=== PATIENT | male | born 1980 | race Caucasian/White ===

== ENCOUNTER 2021-06-18 18:20 | Outpatient (REF) | payer OTHER, SELFPAY ==
[2021-06-19 01:25] LABS: NG PCR NOT DETECTED (Not Detect.)
[2021-06-19 10:48] LABS: CT PCR NOT DETECTED (Not Detect.)
== END 2021-06-18 18:21 | disposition home or self-care (01) ==
LOC: HO.LNP 18:20
PROVIDERS: Visit Provider Hospitalist
DX: Z11.3 Encounter for screening for infections with a predominantly sexual mode of transmission (principal)
CPT/HCPCS: 87491; 87591

== ENCOUNTER 2023-02-23 11:17 | Emergency (ER) | payer OTHER, SELFPAY ==
[2023-02-23 11:25] VITALS: BP 152/84; PULSE 105; RESP 20; TEMP 36.4; O2SAT 96; BMI 39.5
--- NOTE | 2023-02-23 11:25 | ED.GENADULT ---
HPI - General Adult General Chief complaint: Extremity Injury, Lower Stated complaint: L knee pain Time Seen by Provider: 02/23/23 11:24 Source: patient Mode of arrival: other (used crutches) Limitations: no limitations History of Present Illness HPI narrative: Patient is a 42 year old assigned male at with a history of gout presenting to the emergency department today with left knee pain. Patient states that in 2019 he was told he had a left meniscus sprain, got an MRI, and never heard back from the orthopedic group. Patient states that over the last few days he has had increased pain in his left knee. Patient denies any dizziness, lightheadedness, abdominal pain, nausea, vomiting, fever, chills, blurry vision, double vision, loss of vision, chest pain, difficulty breathing, shortness of breath, back pain, night sweats, pain with urination, increased urinary frequency, increased urinary urgency, blood in his urine or stool, syncope or a near syncopal episode, recent trauma or falls, bowel incontinence, bladder incontinence, bowel retention, bladder retention, or any other complaints at this time. Onset (ago): day(s) Location: left and lower extremity Radiation: non-radiation Severity: mild Severity scale (1-10): 4 Quality: aching and dull Pain Consistency: constant Relieving factors: immobilization Exacerbating factors: movement Associated symptoms: denies other symptoms Treatments prior to arrival: none Related Data Previous Rx's Medication Instructions Recorded ibuprofen 800 mg tablet 800 mg PO Q8H 1 month #90 tabs 06/17/21 omeprazole 20 mg capsule,delayed 20 mg PO DAILY #30 caps 06/17/21 release metformin 500 mg tablet 500 mg PO BID #60 tabs 07/14/21 prednisone 10 mg tablet 10 mg PO DIRECTED 18 days #63 09/07/22 tabs prednisone 20 mg tablet 20 mg PO DAILY 7 days #7 tabs 02/23/23 Allergies Allergy/AdvReac Type Severity Reaction Status Date / Time No Known Allergies Allergy Unverified 09/07/22 10:58 Review of Systems Constitutional: Constitutional: Reports no additional constitutional complaints, Denies chills, Denies fever(s) and Denies night sweats Eyes: Eyes: Reports no additional eye complaints, Denies blurry vision, Denies change in vision, Denies diplopia, Denies eye discharge, Denies loss of vision and Denies eye pain ENT: Denies dizziness Cardiovascular: Cardiovascular: Reports no additional cardiovascular complaints, Denies chest pain, Denies lightheadedness, Denies Loss of Consciousness and Denies dyspnea Respiratory: Respiratory: Reports no additional respiratory complaints and Denies dyspnea Gastrointestinal: Gastrointestinal: Reports no additional gastrointestinal complaints, Denies abdominal pain, Denies melena, Denies hematochezia, Denies change in bowel habits and Denies change in stool character Genitourinary: Genitourinary: Reports no additional male genitourinary complaints, Denies hematuria, Denies oliguria, Denies difficulty urinating, Denies dysuria, Denies urinary frequency, Denies urinary hesitancy, Denies urinary incontinence and Denies urinary urgency Musculoskeletal: Musculoskeletal: Reports no additional musculoskeletal complaints, Denies numbness and Denies tingling Comments: left knee pain Neurologic: Denies dizziness, Denies loss of vision, Denies numbness and Denies tingling Psychiatric: Psychiatric: Reports no additional psychiatric complaints Endocrine: Endocrine: Reports no additional endocrine complaints Hematologic/Lymphatic: Hematologic/Lymphatic: Reports no additional hematologic/lymphatic complaints Allergic/Immunologic: Allergic/Immunologic: Reports no additional allergic/immunologic complaints PMFSH Past Medical History Attestation statement: The following information was validated with the patient. Source: old records reviewed and nursing notes reviewed Social History Social History Household Members: Family Housing: House Alcohol intake: current Alcohol intake frequency: holidays/special occasions only Patient Tobacco Use Status: Former Tobacco user Cigarettes Per Day: 40 Years Smoked: 20 Advance Directives: No Advance Directives Information Provided: No Physical Exam ED Vital Signs: Vital Signs - 24 hr 02/23/23 11:25 Temperature 97.6 F Pulse Rate 105 H Respiratory Rate 20 Blood Pressure 152/84 H Pulse Oximetry 96 Oxygen Delivery Method Room Air BMI result Body Mass Index 39.5 Const General: cooperative, no acute distress, alert and awake Nutritional Appearance: well nourished Orientation/consciousness: patient oriented x3 Limitations: no limitations HENMT Head: Yes normal to inspection and Yes atraumatic Ears: hearing grossly normal bilaterally and external ears normal General nose exam: Normal external nose present, no nasal discharge noted and no epistaxis Face and sinus: Yes normal facial exam, No abrasion and No laceration Mouth: Normal oral and palatal mucosa present, no drooling and no muffled voice Eyes General: appearance normal, both eyes and all related structures Periorbital: periorbital findings normal Eyelids: Yes eyelids normal Conjunctivae: conjunctivae normal Pupils: Equal, round and reactive pupils present EOM: EOMs intact bilaterally Neck Neck: Yes normal visual inspection, Yes full ROM and Yes no lymphadenopathy Chest Chest palpation & inspection: normal inspection of the chest Resp Effort & Inspection: normal respiratory effort and able to speak in complete sentences GI Inspection: Yes normal to inspection Neuro General: patient oriented x3 and moves all extremities Cranial nerves: Yes Equal, round and reactive pupils present Cognition (Neuro): normal cognition Motor exam (neuro): 5/5 motor strength present throughout Sensory Exam: Normal double simultaneous stimulation for sensation Coordination: [id number] test normal Extrem General: Yes normal to inspection, Yes full ROM and Yes capillary refill normal Psych Appearance: grossly normal Mental Status: mental status grossly normal Affect: normal affect Attitude: cooperative Thought process: Normal thought process present Thought content: Normal thought content present Insight: Good insight present (Psych) Procedures Orthopedic Splinting/Casting Injury #1: Side: left Lower Extremity Injury Location: knee Lower Extremity Immobilizer: knee immobilizer Medical Decision Making Medical Decision Making MDM Narrative: Patient is a 42 year old assigned male at with a history of GERD and gout presenting to the emergency department today with left knee pain. Patient's physical exam was unremarkable. I explained my physical exam findings to the patient. I answered all questions asked by the patient. Patient's left knee was placed in an immobilizer, without incident. Patient's PMS was intact prior to and after immobilizer placement. I stressed the importance of the patient taking his medication as prescribed. I stressed the importance of the patient following up with his primary care provider and an orthopedic provider. I stressed the importance of the patient returning to the emergency department immediately if his symptoms were to worsen or if he were to develop any dizziness, shortness of breath, difficulty breathing, chest pain, blurry vision, loss of vision, nausea, vomiting, abdominal pain, fever, chills, back pain, or any other complaints. Patient verbalized agreement and understanding with this treatment plan and discharge. Differential Diagnosis Differential Diagnoses: The differential diagnosis associated with the presentation includes Left knee pain Left knee strain Meniscus injury Discharge Plan Discharge Clinical Impression: Meniscal injury, Knee sprain Patient Disposition: Home, Self-Care Instructions: Knee Sprain (DC) Additional Instructions: Follow up with your primary care provider and an orthopedic provider. Return to the emergency department immediately if your symptoms worsen or if you develop any dizziness, shortness of breath, difficulty breathing, chest pain, blurry vision, loss of vision, nausea, vomiting, abdominal pain, fever, chills, back pain, or any other complaints. Prescriptions: New prednisone 20 mg tablet 20 mg PO DAILY 7 Days Qty: 7 0RF No Action metformin 500 mg tablet 500 mg PO BID Qty: 60 8RF ibuprofen 800 mg tablet 800 mg PO Q8H 30 Days Qty: 90 2RF omeprazole 20 mg capsule,delayed release(DR/EC) 20 mg PO DAILY Qty: 30 4RF prednisone 10 mg tablet 10 mg PO DIRECTED 18 Days Qty: 63 0RF Rx Instructions: see taper instructions. Take 60 mg for 3 days, then 50 mg for 3 days, then 40 mg for 3 days, then 30 mg for 3 days, then 20 mg for 3 days, then 10 mg for 3 days then stop. Referrals: [facility] [Provider Group] (Call to establish and follow up with an orthopedic provider.) Katelynn Lynn NP [Primary Care Provider] - Stand Alone Forms: Work/School Release Interventions: ED Discharge Assessment Last Done: 02/23/23 11:42 Discharge Date/Time: 02/23/23 11:42 Print Language: Portuguese
== END 2023-02-23 11:42 | disposition home or self-care (01) ==
PROVIDERS: Emergency Provider Emergency Medicine Emergency Medical Services; PCP Hospitalist
DX: S83.92XA Sprain of unspecified site of left knee, initial encounter (principal); X58.XXXA Exposure to other specified factors, initial encounter; Y93.9 Activity, unspecified; Y92.9 Unspecified place or not applicable; Y99.9 Unspecified external cause status; Z79.899 Other long term (current) drug therapy
CPT/HCPCS: 29505; 99282; 99283

== ENCOUNTER 2023-03-07 08:57 | Outpatient (AMB) | payer OTHER, SELFPAY ==
--- NOTE | 2023-03-07 09:11 | A.OFFVIS_ITS ---
Intake Vital Signs 03/07/23 09:12 Height 5 ft 8 in Weight 260 lb BMI 39.5 Intake Visit Reasons: ED F/U- Left Knee pain Intake Note: Shaq is a 42 year old male who presnets today for an Emergency Room Visit follow up with complaints of left knee pain. Patient reports that he had a slip and fall in 2019 landing on the left knee. After this injury he was unable to weight bear and has significant swelling. He was seen with [facility] blevins ordered and MRI and no other follow up was made. Patient was doing well up until 02/20/23 when he woke up with significant pain and unable to weight bear. 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 Allergies No Known Allergies Allergy (Unverified 09/07/22 10:58) HPI ED F/U- Left Knee pain HPI Details 42-year-old male who presents to the off ice today for an ED follow-up of left knee pain s/p slip and fall on his left side in July 2019. He reports he was unable to weight bear and experienced significant swelling after his DOI . He did f/u with our office after the initial injury, an MRI was ordered for his left knee. He states he was doing well up until 02/14/23, while he was at work he twisted and felt a twinge in the knee. He also c/o sensation of instability. On 02/20/23, he states he was getting out of bed when he stepped down and his knee gave out. 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 [facility] Social History Household Members: Family Housing: House Alcohol intake: current Alcohol intake frequency: holidays/special occasions only Patient Tobacco Use Status: Former Tobacco user Cigarettes Per Day: 40 Years Smoked: 20 Review of Systems Const All systems reviewed & are unremarkable except as noted in HPI and below Physical Exam Vital Signs: BMI result Body Mass Index 39.5 Const General: cooperative and no acute distress Orientation/consciousness: patient oriented x3 Resp Effort & Inspection: normal respiratory effort and able to speak in complete sentences Cardio Peripheral pulses: Peripheral pulses 2+ throughout Neuro General: patient oriented x3 Extrem Other: Left knee: Skin intact, no erythema or joint effusion. Tenderness along the medial joint line. Full ROM with crepitus. Negative Michael?s. Laxity with anterior drawer. NVI. Right knee: Skin intact, no erythema or joint effusion. Lateral retropatellar tenderness present. Full ROM with crepitus. Negative Michael?s. No ligamentous laxity. NVI. Results Reviewed Results Reviewed: MRi left knee 07/19/2019 IMPRESSION: 1. Abnormal findings indicative of tear of the ACL. There may be some thin fibers remaining. Findings are suggestive of high-grade partial tearing. 2. Signal changes in the anterior horn of the lateral meniscus may reflect degeneration or contusion. No convincing tear is seen. 3. Subchondral intra-articular nondisplaced fracture of the posterior aspect of the medial tibial plateau. Impaction fracture of the posterior aspect lateral tibial plateau. Associated prominent marrow edema. Bone contusion of the lateral aspect lateral femoral condyle. 4. Moderate to large joint effusion with synovitis/debris. Moderate complex Vaughan's cyst with synovitis/debris. Xrays were obtained in the office today and personally reviewed by me of the left knee show well preserved joint space . Assessment & Plan Assessment & Plan (1) Complete tear of anterior cruciate ligament of left knee: Code(s): S83.512A - Sprain of anterior cruciate ligament of left knee, initial encounter Qualifiers: Encounter type: initial encounter Qualified Code(s): S83.512A - Sprain of anterior cruciate ligament of left knee, initial encounter (2) Patellofemoral arthralgia of right knee: Code(s): M25.561 - Pain in right knee Plan Dr. Nolasco was available to see the patient with me today. We discussed options which include surgical vs non-surgical intervention. At this time, he will hold off on surgical intervention, therefore we are going to proceed with physical therapy and non-op ACL program on the left knee. He was also placed in a hinge knee brace on his left knee. If he continues to experience any type of instability, catching or locking he will contact office to discuss proceeding with ACL reconstruction of the left knee. For his right knee, he was fit for a Genumed knee brace in the office today. He will continue with physical therapy for right knee to work on ROM, quad strength and hip and hamstring strengthening. If symptoms persist or worsens, patient will contact the office for a steroid injection, otherwise follow-up as needed. Orders: Orders XR knee LT 2V Today M25.562 - Pain in left knee XR knee standing BI Today M25.561 - Pain in right knee, M25.562 - Pain in left knee PT Evaluation and Treatment Today M25.561 - Pain in right knee, S83.512A - Sprain of anterior cruciate ligament of left knee, initial encounter Patient Instructions: Scribed for Shana Zuluaga PA-C, by Xavier Cameron emergency medical service manager, on 03/07/2023 at 9:00 AM EST. I, Shana Zuluaga PA-C, have personally reviewed and agree with the information entered by the scribe. Coding Level of Care Code Est Pt Level 3 (94723) Diagnoses Complete tear of anterior cruciate ligament of left knee, initial encounter S83.512A Encounter type: initial encounter Patellofemoral arthralgia of right knee M25.561
[2023-03-07 09:12] VITALS: BMI 39.5
== END 2023-03-07 10:34 | disposition home or self-care (01) ==
PROVIDERS: PCP Hospitalist; Visit Provider Physician Assistant
DX: S83.512A Sprain of anterior cruciate ligament of left knee, initial encounter (principal); M25.561 Pain in right knee
CPT/HCPCS: 99213

== ENCOUNTER 2023-03-07 12:05 | Outpatient (REF) | payer OTHER, SELFPAY ==
--- NOTE | ~2023-03-07 | XR_ITS ---
STUDY: Standing knee and left knee INDICATION: Bilateral knee pain COMPARISON: 07/16/2019 TECHNIQUE: Standing knee and 2 view left knee FINDINGS: Left knee joint remains minimally higher than the right on standing knee view. Mild spurring bilaterally. Mild medial knee joint narrowings, left greater than right. Small left effusion. Small calcification inferior to the patella on lateral view. XR/XR knee LT 2V IMPRESSION: Small left suprapatellar effusion. Bilateral bilateral mild degenerative type changes.
--- NOTE | ~2023-03-07 | XR_ITS ---
STUDY: Standing knee and left knee INDICATION: Bilateral knee pain COMPARISON: 07/16/2019 TECHNIQUE: Standing knee and 2 view left knee FINDINGS: Left knee joint remains minimally higher than the right on standing knee view. Mild spurring bilaterally. Mild medial knee joint narrowings, left greater than right. Small left effusion. Small calcification inferior to the patella on lateral view. XR/XR knee standing BI IMPRESSION: Small left suprapatellar effusion. Bilateral bilateral mild degenerative type changes.
== END 2023-03-07 12:06 | disposition home or self-care (01) ==
LOC: HO.HOSX 12:05
PROVIDERS: Visit Provider Physician Assistant
DX: S83.512A Sprain of anterior cruciate ligament of left knee, initial encounter (principal); M25.561 Pain in right knee
CPT/HCPCS: 73560; 73565

== ENCOUNTER 2023-05-06 11:00 | Outpatient (RCR) | payer OTHER, SELFPAY ==
--- NOTE | 2023-03-25 14:52 | MHC.PT.EP ---
[facility] Start Office [place] Office [place] Office [address] Miguel Chacon [address] [phone] F: [phone] F: [phone] F: [phone] F: [phone] Physical Therapy Plan of Care Date of Evaluation: 03/25/23 Date of Surgery: NA Diagnosis: Sprain of anterior cruciate ligaments of L knee Pain in R knee Assessment: Shaq is a 41 year old male who is referred to PT for Sprain of anterior cruciate ligaments of L knee, Pain in R knee . He reports of having L knee pain since a fall in 2019. Per pt he was told he had meniscal tear but recently found out that he has no ACL on L side. He has h/o R knee pain for about 15 years. On PT examination he presents with no TTP, 5/10 pain in R knee with stairs, getting in and out of car and weakness in L knee with standing for long, decreased R Knee ROM, decreased muscle strength in B LE, altered posture, gait and balance. He lives with his mother but is independent with all ADLS. 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 He would benefit from skilled PT to address the aforementioned impairments and improve tolerance to functional activities. Frequency and Duration: The patient will be seen 2/weeek for 5 weeks. Short Term Goals: 1. Pt will have 50% decrease in pain which will enable him to get in and out car without pain in 2 weeks. 2. Pt will be able to move R Knee through full plane of motion without pain which will enable him to negotiate stairs without pain in 3 weeks. Mcfp Goals: 1. Pt will demonstrate an increase in muscle strength by 1 grade which will enable him to tolerate standing, and squatting without pain in 5 weeks. 2. Pt will be independent with all HEP for symptom management and maintenance following d/c in 5 weeks. Treatment Plan: Modalities to reduce pain, spasms and effusion. Manual therapy to restore motion and function. Therapeutic exercise to improve strength and flexibility. Neuromuscular re-education for posture and balance. Therapeutic activities to return to functional activities of daily living. Electronically signed by: Sujey Ede, PT DPT Please sign and return to therapist. Thank you for your referral.
--- NOTE | 2023-05-23 15:06 | MHC.PT.DC ---
[facility] [place] Office [place] Office [place] Office [address] Miguel Chacon [address] [phone] F: [phone] F: [phone] F: [phone] F: [phone] Physical Therapy Discharge Report Diagnosis: Sprain of anterior cruciate ligaments of L knee Pain in R knee Date of Surgery: NA Date of Evaluation: 03/25/23 Date of Discharge: 05/23/23 Treatments to Date: 4 Cancellations to Date: 0 No Shows to Date: 0 Discharge Status: Achieved Goals Improved Function Independent with HEP Discharge Summary: Shaq attended 4 PT visits and is independent with all HEPs. He demonstrated improvements in his functions as well. He is therefore being d/c from PT. Electronically signed by: Sujey Mera PT DPT Please sign and return to therapist. Thank you for your referral.
== END 2023-05-23 15:06 | disposition home or self-care (01) ==
LOC: HO.PT 11:00
PROVIDERS: PCP Hospitalist; Visit Provider Physician Assistant
DX: S83.512A Sprain of anterior cruciate ligament of left knee, initial encounter (principal); M25.561 Pain in right knee
CPT/HCPCS: 97110; 97161; 97530